=== PATIENT | male | born 1970 ===

== ENCOUNTER 2022-01-29 02:00 | Emergency (ER) | payer SELFPAY ==
[2022-01-29 02:44] LABS: CHLORIDE,CL 104 mmol/L (98-107); SODIUM,NA 140 mmol/L (136-145)
[2022-01-29 02:57] LABS: ANION GAP 12.6 mmol/L (5-15); ESTIMATED GFR 56 mL/min (>=60)
[2022-01-29 03:10] LABS: BARBITURATE SCREEN,URINE NEGATIVE (NEGATIVE); BENZODIAZEPINES SCREEN,URINE NEGATIVE (NEGATIVE); BUPRENORPHINE SCREEN,URINE NEGATIVE (NEGATIVE); METHAMPHETAMINE SCREEN, URINE NEGATIVE (NEGATIVE); THC SCREEN,URINE 50 NG/ML NEGATIVE (NEGATIVE)
== END 2022-01-29 04:30 | disposition home or self-care (01) ==
LOC: VM.ED 02:00
DX: Z13.9 Encounter for screening, unspecified (principal)
CPT/HCPCS: 36415; 80053; 80305-QW; 80307; 81003; 85025; 86140; 99285